=== PATIENT | male | born 1945 | race Caucasian/White ===

== ENCOUNTER 2017-12-20 09:02 | Outpatient (CLI) | payer BC, MEDICARE ==
[2017-12-20] MEDS ORDERED: Iopamidol 370 76% 100 ML VIAL ONE (09:04)
--- NOTE | 2017-12-20 11:53 | CT ---
CT ABDOMEN AND PELVIS WITH AND WITHOUT IV CONTRAST: INDICATIONS: History of prostate cancer with microhematuria. Elevated PSA. COMPARISON: No comparisons are available. TECHNIQUE: Multiple CT images were obtained of the abdomen and pelvis with and without IV contrast utilizing a C T urogram protocol. FINDINGS: ABDOMEN: The lung bases are clear. There are coronary artery calcifications. The gallbladder is garg rgically absent. The pancreas and adrenal glands are normal appearing. The spleen is normal appeari ng. There is a 7 mm cyst within the left mid kidney. There is a 3.7 mm, nonobstructing calculus wit hin the superior pole of the right kidney. There is a 2.6 cm ectasia involving the infrarenal abdominal aorta, on image 45 of series 3. There i s moderate to severe calcification noted involving the abdominopelvic vasculature. PELVIS: There are scattered diverticula involving the colon, without evidence of active diverticulit is. The small bowel is normal appearing. The prostate is enlarged, measuring 5.8 cm. The bladder i s decompressed. No gross abnormal urothelial lesion is identified. No definite filling defect is noted on the delaye d phase images. Small phleboliths are seen scattered throughout the lower pelvis. OSSEOUS STRUCTURES: There is advanced disk degenerative disease at L5-S1. There is moderate disk de generative disease at L3-L4 and at L4-L5. There is slight degenerative dextroscoliosis of the lumbar spine, centered at L4-L5. No suspicious osteolytic or osteoblastic lesions identified. IMPRESSION: 1. No solid renal lesion or gross urothelial lesion identified. 2. No evidence of prostate enlargement. 3. Right nephrolithiasis and left renal cyst. 4. Colonic diverticulosis. 5. Mild ectasia of infrarenal abdominal aorta, measuring up to 2.6 cm. POS: [facility]
--- NOTE | 2017-12-20 15:58 | NM ---
NUCLEAR MEDICINE BONE SCAN: HISTORY: Prostate cancer. TECHNIQUE: Examination is performed using 31.8 millicuries of 99m technetium MDP, administered intravenously. FINDINGS: This shows some increased uptake in the lower cervical spine regions, which is probably arthritic in nature. There is otherwise a fairly normal distribution of the radiopharmaceutical with bilateral re nal as well as bladder activity. IMPRESSION: No evidence of metastatic disease. POS: [facility]
== END 2017-12-20 09:03 | disposition home or self-care (01) ==
LOC: CT 09:02
PROVIDERS: ATTEND Urology
DX: C61 Malignant neoplasm of prostate (principal); R31.29 Other microscopic hematuria; N20.0 Calculus of kidney; N28.1 Cyst of kidney, acquired; K57.30 Diverticulosis of large intestine without perforation or abscess without bleeding; I77.811 Abdominal aortic ectasia
CPT/HCPCS: 74178; 78306; 82565; A9503

== ENCOUNTER 2018-01-19 09:06 | Outpatient (CLI) | payer BC, MEDICARE ==
--- NOTE | 2018-01-19 14:58 | MRI ---
MRI OF THE PELVIS WITH AND WITHOUT CONTRAST UTILIZING PROSTATE CANCER SPECIFIC PROTOCOL: Date: 01/19/18 INDICATION: History of prostate cancer. TECHNIQUE: Multiplanar, multisequence MR images were obtained of the pelvis utilizing prostate cancer protocol a nd contrast (20 mL of Multihance). The study was evaluated utilizing a separate [employer] 3D workstatio n for multiparametric evaluation. FINDINGS: The prostate measures 5.5 x 3.6 x 4.1 cm, giving a prostatic volume of 41.24 cm. No area of restricted diffusion is evident within the peripheral zone of the prostate gland. There is a noncircumscribed, slightly lenticular, homogeneously T2 hypointense lesion measuring 1.5 x 1.0 cm within the anterior transitional zone of the left mid gland and left apex extending into the anterolateral peripheral zone of the left mid and left prostate apex. The lesion does abut the margin of the anterolateral capsule approximately 8.0 mm. There is no overt evidence to suggest neurovascul ar invasion. No pathologically enlarged lymph nodes are present. There is a small, 8.8 mm, T2 and T1 hypointense lesion with enhancement involving the left pubic body , nonspecific. The patient has a background of heterogeneous marrow signal involving the pelvis. Ther e are scattered diverticula involving the colon. No free fluid is evident. IMPRESSION: 1. PI-RADS Category 5 - Very high (clinically significant cancer is highly likely to be present) . 2. There is a large, suspicious, homogeneously hypointense lesion seen involving the anterior le ft transitional zone in the left mid gland and left apex extending into the anterolateral left periph eral zone of the left mid gland and left apex that is suspicious for malignancy. Would recommend cons ideration for repeat image guided directed biopsy of this lesion. 3. Small, 8.8 mm, enhancing lesion of the left pubic body that has no CT correlate on a comparis on CT of the abdomen/pelvis dated 12/20/17. There is no activity seen within this region on the prior whole body bone scan. This may reflect a small focus of heterogeneous marrow related to red marrow h yperplasia. Follow-up CT of the pelvis or possible follow-up bone scan may be helpful in 6-8 weeks to document presence or absence of osseous metastatic disease in the pelvis. There is no overt MR evide nce to suggest presence of lymphadenopathy or neurovascular invasion on the MRI examination. POS: [facility]
== END 2018-01-19 09:07 | disposition home or self-care (01) ==
LOC: TBSIIMAG 09:06
PROVIDERS: ATTEND Urology
DX: C61 Malignant neoplasm of prostate (principal); R19.07 Generalized intra-abdominal and pelvic swelling, mass and lump
CPT/HCPCS: 72197

== ENCOUNTER 2018-02-15 12:08 | Outpatient (CLI) | payer BC, MEDICARE ==
--- NOTE | 2018-02-15 14:51 | CT ---
CT PELVIS NONCONTRAST: HISTORY: Prostate cancer. Abnormal MRI. COMPARISON: Bone scan 12/20/2017, MRI pelvis 01/19/2018. FINDINGS: Left pubic rami are again closely evaluated. No sclerotic or lytic lesions are visible to correlate with the area of concern on recent MRI. There are degenerative changes of the lower lumbar spine. C alcification in the arterial structures. Urinary bladder is decompressed. Diverticula arise from th e partially visualized sigmoid colon. IMPRESSION: 1. No pelvic bone lesion is visible in the area of concern on recent MRI. 2. Incidental-type findings are as detailed above. POS: [facility]
== END 2018-02-15 12:09 | disposition home or self-care (01) ==
LOC: BICCT 12:08
PROVIDERS: ATTEND Urology
DX: C61 Malignant neoplasm of prostate (principal)
CPT/HCPCS: 72192

== ENCOUNTER 2018-03-01 11:00 | Day surgery (SDC) | payer BC, MEDICARE ==
[2018-02-14 11:07] VITALS: BMI 26.6
[2018-03-01] MEDS ORDERED: PROPOFOL 200 MG/20 ML VIAL ONE (11:10)
[2018-03-01] MEDS ORDERED: Lidocaine 1% PF 5 ML VIAL ONE (11:10)
[2018-03-01] MEDS ORDERED: PHENYLEPHRINE-NS 100 MCG/ML 10 ML SYRINGE ONE (11:10)
[2018-03-01] MEDS ORDERED: Meropenem 1 GM in Sodium Chloride 0.9% 100 ML IVPB SCH (12:15)
[2018-03-01] MEDS ORDERED: MEROPENEM 1 GM/50 ML 1 GM in Premix Bag 1 BAG IVPB SCH (12:30)
[2018-03-01] MEDS ORDERED: PROPOFOL 20 ML ONE (12:31)
[2018-03-01] MEDS ORDERED: Midazolam HCl 2 mg/2 ml Vial ONE (12:32)
--- NOTE | 2018-03-01 22:04 | OP ---
DATE OF PROCEDURE: 03/01/2018 PREOPERATIVE DIAGNOSIS: A 72-year-old male with clinical T1c prostate cancer, Diana score 3+3, 1/12 cores positive, left apex medial, left base lateral, left base medial with atypical glands. POSTOPERATIVE DIAGNOSIS: A 72-year-old male with clinical T1c prostate cancer, Purdy score 3+3, 1/12 cores positive, left apex medial, left base lateral, left base medial with atypical glands. PROCEDURE PERFORMED: Transrectal ultrasound volume study, 12-core standard prostate biopsy, MRI UroNav fusion biopsy of region of interest. ANESTHESIA: TIVA. COMPLICATIONS: None apparent. DISPOSITION: To recovery room in stable condition. SPECIMENS: 1. Standard 12-core prostate biopsy. 2. Region of interest x1 on MRI: 4 cores obtained at the region of interest. INDICATIONS FOR PROCEDURE AND HISTORY: Mr. Dawson is a 72-year-old male with past medical history of coronary artery disease, Parkinson's with mild cognitive dysfunction, presented with PSA of 19 with unremarkable CRYSTAL. Prostate biopsy obtained, demonstrating Diana score 3+3, 1/12 core, less than 1% at the biopsy. The patient has been fully informed regarding various treatment options of his prostate cancer. I was unable to run genomic testing as there was a scant tissue on initial biopsy consistent with Purdy score of 3+3. As he is contemplating active surveillance, I did express concerns as he has elevated PSA of 19. Metastatic workup thus far has been negative. He presents today for MRI fusion biopsy. DESCRIPTION OF PROCEDURE: After an informed consent was signed, the patient was taken to the operating room and placed in a supine position. TIVA anesthesia was performed. Broad spectrum antibiotics with meropenem was provided. As he does have Cipro rectal resistance swab, he has been provided Bactrim preemptively and will continue post op. The patient was placed in left lateral decubitus position after TIVA anesthesia administered. Pressure points padded and protected. Using our standard end-firing transrectal ultrasound probe, this was placed after digital rectal exam which demonstrated no discrete nodularity. We did a volume study demonstrating urethral length of 3.8, width of 5.7, height of 3.0, volume estimated to be 36 g. We obtained standard 12-core biopsy specimens, appropriately labeled and sent, and afterwards, we then performed UroNav fusion of the ZION to the ultrasound. We obtained 4 cores from the region of interest, which was performed uneventfully. He tolerated the procedure well. The patient is to continue his Bactrim for course of 5 days as prescribed and he will follow up with me next week to review pathology. Job ID: [id number] MTDD
== END 2018-03-01 15:18 | disposition home or self-care (01) ==
LOC: SDC 11:00
PROVIDERS: ATTEND Urology
PROC: 0VB03ZX Excision of Prostate, Percutaneous Approach, Diagnostic (ICD-10-PCS; principal; 2018-03-01)
DX: C61 Malignant neoplasm of prostate (principal); G20 Parkinson's disease; G31.84 Mild cognitive impairment of uncertain or unknown etiology; E55.9 Vitamin D deficiency, unspecified; G47.00 Insomnia, unspecified; I25.10 Atherosclerotic heart disease of native coronary artery without angina pectoris; Z79.52 Long term (current) use of systemic steroids; Z79.82 Long term (current) use of aspirin; Z79.899 Other long term (current) drug therapy; Z95.1 Presence of aortocoronary bypass graft; Z95.5 Presence of coronary angioplasty implant and graft
CPT/HCPCS: 88305; J2001; J2185; J2250; J2704; J7050

== ENCOUNTER 2019-05-03 07:00 | Outpatient (CLI) | payer BC, MEDICARE ==
--- NOTE | 2019-05-03 08:37 | ULT ---
ABDOMINAL ULTRASOUND COMPLETE: HISTORY: Periumbilical pain. FINDINGS: Visualized liver appears unremarkable. Status post cholecystectomy. Common bile duct 0.6 cm. Ather osclerotic vascular changes are noted of the aorta with a focal somewhat irregular 2 cm diameter aneu rysmal dilatation. No focal liver masses. Visualized pancreas, IVC, spleen are unremarkable. No re nal hydronephrosis. No abscess or abnormal fluid collection. 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 Status post cholecystectomy without significant ductal dilatation. POS: [facility]
== END 2019-05-03 07:01 | disposition home or self-care (01) ==
LOC: BICULT 07:00
PROVIDERS: ATTEND Internal Medicine Gastroenterology
DX: G20 Parkinson's disease (principal); R10.33 Periumbilical pain; K63.5 Polyp of colon; I71.4 Abdominal aortic aneurysm, without rupture; I70.0 Atherosclerosis of aorta; Z90.49 Acquired absence of other specified parts of digestive tract; Z85.46 Personal history of malignant neoplasm of prostate
CPT/HCPCS: 93975

== ENCOUNTER 2021-04-27 07:53 | Outpatient (CLI) | payer BC, MEDICARE | END 2021-04-27 07:54 | disposition home or self-care (01) | LOC: ULT 07:53 | PROVIDERS: ATTEND Internal Medicine Cardiovascular Disease | DX: I71.4 Abdominal aortic aneurysm, without rupture (principal) | CPT/HCPCS: 76775 ==

== ENCOUNTER 2022-03-27 11:52 | Emergency (ER) | payer BC, MEDICARE ==
[~2022-03-27 11:52] MED LIST: Iopamidol-370 76% 500 ML 1 ML ONE
[2022-03-27 13:34] LABS: Hemoglobin 14.4 g/dL (14.0-18.0); Mean Corpuscular HGB CONC 34.3 g/dL (32.0-36.0); Mean Corpuscular Hemoglobin 33.3 pg (27.0-31.0); Mean Platelet Volume 8.2 fL (7.4-10.4); Platelet Count 136 10x3/uL (130-400); RBC Distribution Width 11.6 % (11.5-14.5); Red Blood Cell (RBC) Count 4.33 mill/uL (4.70-6.10); White Blood Cell (WBC) Count 6.6 10x3/uL (4.8-10.8)
[2022-03-27 13:51] LABS: Band 9 % (5-11); Eosinophils 1 % (0-10); Lymphocytes 11 % (21-51); MDiff Complete? YES; Monocytes 17 % (0-10); Neutrophil 58 % (42-75); Platelet Morphology Comment Appears Adequate; RBC Morphology Normal; Reactive Lymphocytes 4 % (0-10)
[2022-03-27 13:54] LABS: ALT (SGPT) 24 U/L (8-55); AST (SGOT) 22 U/L (5-34); Albumin 3.8 g/dL (3.4-4.8); Alkaline Phosphatase 64 U/L (40-110); Anion Gap 14 mmol/L (10-20); BUN (Urea Nitrogen) 19 mg/dL (8.4-25.7); Bilirubin, Total 2.6 mg/dL (0.2-1.2); Calc. Creatinine Clearance 0 mL/min (70-130); Carbon Dioxide 23 mmol/L (23-31); Chloride 108 mmol/L (98-107); Estimated GFR 73; Globulin 2.1 g/dL (2.4-3.5); Glucose 105 mg/dL (83-110); Lipase 20 U/L (8-78); Protein, Total 5.9 g/dL (5.8-8.1); Sodium 141 mmol/L (136-145)
== END 2022-03-27 15:26 | disposition home or self-care (01) ==
LOC: ERS 11:52
DX: U07.1 COVID-19 (principal); Z79.899 Other long term (current) drug therapy
CPT/HCPCS: 36415; 71045; 74177; 80053; 83690; 83880; 84484; 85025; 93005; Q9967

== ENCOUNTER 2022-04-07 07:54 | Outpatient (CLI) | payer BC, MEDICARE | END 2022-04-07 07:55 | disposition home or self-care (01) | LOC: BICRAD 07:54 | PROVIDERS: ATTEND Family Medicine | DX: M25.562 Pain in left knee (principal); M25.552 Pain in left hip | CPT/HCPCS: 72170 ==

== ENCOUNTER 2023-05-12 12:24 | Outpatient (CLI) | payer BC, MEDICARE | END 2023-05-12 12:25 | disposition home or self-care (01) | LOC: BICRAD 12:24 | PROVIDERS: ATTEND Urology | DX: N20.0 Calculus of kidney (principal) | CPT/HCPCS: 74018 ==

== ENCOUNTER 2023-10-07 15:01 | Outpatient (CLI) | payer BC, MEDICARE | END 2023-10-07 15:02 | disposition home or self-care (01) | LOC: BICCT 15:01 | PROVIDERS: ATTEND Psychiatry & Neurology Neurology | DX: G20.A2 Parkinson's disease without dyskinesia, with fluctuations (principal); R90.82 White matter disease, unspecified | CPT/HCPCS: 70450 ==

== ENCOUNTER 2024-01-13 05:49 | Day surgery (SDC) | payer BC, MEDICARE ==
[2024-01-09 10:29] VITALS: BMI 25.8
[2024-01-13] MEDS ORDERED: Nitroglycerin 50 MG/250 ML BOT 0 ML ONE (06:20)
[2024-01-13] MEDS ORDERED: Lidocaine 1% MPF 2 ML VIAL ONE (06:45)
[2024-01-13] MEDS ORDERED: fentaNYL 50 mcg/mL 1 mL Vial ONE (07:01)
[2024-01-13] MEDS ORDERED: Midazolam HCl 2 mg/2 ml Vial ONE (07:02)
[2024-01-13] MEDS ORDERED: Heparin 10,000 UNITS/ 10 ML VIAL ONE (07:13)
[2024-01-13] MEDS ORDERED: fentaNYL PF 100 MCG/2 ML SYRINGE ONE (09:03)
[2024-01-13] MEDS ORDERED: Iopamidol 370 76% 100 ML VIAL ONE (09:38)
== END 2024-01-13 12:45 | disposition home or self-care (01) ==
LOC: CCL 05:49
PROVIDERS: ATTEND Internal Medicine Cardiovascular Disease
PROC: 4A023N7 Measurement of Cardiac Sampling and Pressure, Left Heart, Percutaneous Approach (ICD-10-PCS; principal; 2024-01-13)
DX: I25.10 Atherosclerotic heart disease of native coronary artery without angina pectoris (principal); G20.A1 Parkinson's disease without dyskinesia, without mention of fluctuations; E78.00 Pure hypercholesterolemia, unspecified; Z95.1 Presence of aortocoronary bypass graft; I50.32 Chronic diastolic (congestive) heart failure; C61 Malignant neoplasm of prostate; I73.9 Peripheral vascular disease, unspecified; Z79.899 Other long term (current) drug therapy
CPT/HCPCS: 93459; 99152; 99153; C1769; C1887; C1894; J1644; J2250; J3010; Q9967

== ENCOUNTER 2024-02-17 09:37 | Outpatient (CLI) | payer BC, MEDICARE | END 2024-02-17 09:38 | disposition home or self-care (01) | LOC: BICRAD 09:37 | PROVIDERS: ATTEND Nurse Practitioner Family | DX: R06.02 Shortness of breath (principal) | CPT/HCPCS: 71046 ==

== ENCOUNTER 2024-04-05 12:08 | Outpatient (CLI) | payer BC, MEDICARE ==
[2024-04-05 13:13] LABS: #Basophils Less than 0.03 10x3/uL (0.0-0.2); %Basophils 0.1 % (0.0-1.0); %Eosinophils 0.4 % (0.0-10.0); %Lymphocytes 19.8 % (21.0-51.0); %Monocytes 6.9 % (0.0-10.0); %Neutrophils 72.1 % (42.0-75.0); Hematocrit 45.6 % (42.0-52.0); Hemoglobin 15.6 g/dL (14.0-18.0); Mean Corpuscular HGB CONC 34.2 g/dL (32.0-36.0); Mean Corpuscular Hemoglobin 31.6 pg (27.0-31.0); Mean Corpuscular Volume 92.5 fL (78.0-98.0); Mean Platelet Volume 10.1 fL (7.4-10.4); Platelet Count 201 10x3/uL (130-400); RBC Distribution Width 12.4 % (11.5-14.5); Red Blood Cell (RBC) Count 4.93 mill/uL (4.70-6.10)
[2024-04-05 13:48] LABS: ALT (SGPT) 9 U/L (8-55); AST (SGOT) 21 U/L (5-34); Albumin 3.6 g/dL (3.4-4.8); Alkaline Phosphatase 79 U/L (40-110); Anion Gap 15 mmol/L (10-20); BUN (Urea Nitrogen) 21 mg/dL (8.4-25.7); Bilirubin, Total 1.3 mg/dL (0.2-1.2); Calc. Creatinine Clearance 0 mL/min (70-130); Calcium 9.2 mg/dL (7.8-10.44); Carbon Dioxide 25 mmol/L (23-31); Chloride 105 mmol/L (98-107); Estimated GFR 90; Globulin 3.6 g/dL (2.4-3.5); Glucose 106 mg/dL (83-110); Potassium 3.6 mmol/L (3.5-5.1); Protein, Total 7.2 g/dL (5.8-8.1); Sodium 141 mmol/L (136-145)
== END 2024-04-05 12:09 | disposition home or self-care (01) ==
LOC: LABBT 12:08
PROVIDERS: ATTEND Internal Medicine Cardiovascular Disease
DX: Z01.812 Encounter for preprocedural laboratory examination (principal); I25.10 Atherosclerotic heart disease of native coronary artery without angina pectoris
CPT/HCPCS: 80053; 85025

== ENCOUNTER 2024-04-11 05:46 | Day surgery (SDC) | payer BC, MEDICARE ==
[2024-04-05 12:33] VITALS: BMI 25.1
[2024-04-11] MEDS ORDERED: Nitroglycerin 50 MG/250 ML BOT 250 ML ONE (06:23)
[2024-04-11] MEDS ORDERED: fentaNYL 50 mcg/mL 1 mL Vial ONE ×4 (06:23→13:11)
[2024-04-11] MEDS ORDERED: Heparin 10,000 UNITS/ 10 ML VIAL ONE ×2 (06:23→07:57)
[2024-04-11] MEDS ORDERED: Midazolam HCl 2 mg/2 ml Vial ONE ×4 (06:23→12:14)
[2024-04-11] MEDS ORDERED: Aspirin Chewable 81 MG TAB ONE ×2 (07:33→08:43)
[2024-04-11] MEDS ORDERED: TICAGRELOR 90 MG TABLET ONE (08:43)
[2024-04-11] MEDS ORDERED: Iopamidol 370 76% 100 ML VIAL ONE (15:36)
[2024-04-11] MEDS ORDERED: Clopidogrel Bisulfate 300 MG TAB PO SCH (17:15)
== END 2024-04-11 17:37 | disposition home or self-care (01) ==
LOC: SDC 05:46
PROVIDERS: ATTEND Internal Medicine Cardiovascular Disease
PROC: 027034Z Dilation of Coronary Artery, One Artery with Drug-eluting Intraluminal Device, Percutaneous Approach (ICD-10-PCS; principal; 2024-04-11)
DX: I25.119 Atherosclerotic heart disease of native coronary artery with unspecified angina pectoris (principal); I50.32 Chronic diastolic (congestive) heart failure; I73.9 Peripheral vascular disease, unspecified; E78.00 Pure hypercholesterolemia, unspecified; C61 Malignant neoplasm of prostate; G20.A1 Parkinson's disease without dyskinesia, without mention of fluctuations; Z95.1 Presence of aortocoronary bypass graft; Z95.5 Presence of coronary angioplasty implant and graft; Z90.49 Acquired absence of other specified parts of digestive tract; Z79.51 Long term (current) use of inhaled steroids; Z79.899 Other long term (current) drug therapy
CPT/HCPCS: 85347; 92928; 93005; 93454; 99152; 99153; C1725; C1769; C1874; C1887; C1894; C9600; J1644; J2250; J3010; Q9967

== ENCOUNTER 2024-04-18 11:55 | Outpatient (CLI) | payer BC, MEDICARE | END 2024-04-18 11:56 | disposition home or self-care (01) | LOC: RAD 11:55 | PROVIDERS: ATTEND Nurse Practitioner Family | DX: M47.812 Spondylosis without myelopathy or radiculopathy, cervical region (principal); M43.12 Spondylolisthesis, cervical region; M48.02 Spinal stenosis, cervical region; M25.78 Osteophyte, vertebrae | CPT/HCPCS: 72050 ==

== ENCOUNTER 2024-05-04 13:59 | Outpatient (CLI) | payer BC, MEDICARE | END 2024-05-04 14:00 | disposition home or self-care (01) | LOC: BICMRI 13:59 | PROVIDERS: ATTEND Family Medicine Sports Medicine | DX: M75.111 Incomplete rotator cuff tear or rupture of right shoulder, not specified as traumatic (principal); M19.011 Primary osteoarthritis, right shoulder ==